=== PATIENT | male | born 1980 | race African-American/Black ===

== ENCOUNTER 2017-07-03 10:24 | Emergency (ER) | payer BC ==
[~2017-07-03] VITALS: Ht 182.9 cm; Wt 108.8 kg
[2017-07-03] MEDS ORDERED: ASPIRIN 81 MG TABLET CHEW PO ONE (11:30)
[2017-07-03 11:56] LABS: HEMATOCRIT 46.9 % (39.2-51.8); HEMOGLOBIN 15.5 g/dL (13.7-18.0); WHITE BLOOD COUNT 4.9 x10^3/uL (3.4-10)
[2017-07-03 12:02] LABS: ASPARTATE AMINO TRANSFERASE 27 U/L (15-37); BLOOD UREA NITROGEN 18 mg/dL (7-18)
[2017-07-03 12:10] LABS: IS PT STATUS REG ER OR PRE ER? YES
[2017-07-03] MEDS ORDERED: ASPIRIN 81 MG TABLET CHEW ONE (12:15)
[2017-07-03 12:17] VITALS: BP 145/97
== END 2017-07-03 12:48 | disposition home or self-care (01) ==
LOC: ED 12:01
DX: R07.89 Other chest pain (principal)
CPT/HCPCS: 36415; 71010; 80053; 84484; 85025; 93005; 99285